=== PATIENT | female | born 1995 | race Caucasian/White ===

== ENCOUNTER 2020-07-06 08:21 | Outpatient (CLI) | payer BC, MEDICAID, SELFPAY ==
[2020-07-08 08:48] LABS: TB Skin Test Erythema 0 mm; TB Skin Test Induration 0 mm (0-10); TB Skin Test Interpretation Negative (Negative); TB Skin Test Site Left Arm
== END 2020-07-06 08:22 | disposition home or self-care (01) ==
LOC: CHSLAB 08:26
PROVIDERS: PCP Family Medicine; Visit Provider Family Medicine
DX: Z11.1 Encounter for screening for respiratory tuberculosis (principal)
CPT/HCPCS: 36415; 86580

== ENCOUNTER 2020-07-13 08:24 | Outpatient (CLI) | payer BC, MEDICAID, SELFPAY ==
[2020-07-16 10:23] LABS: TB Skin Test Erythema 0 mm; TB Skin Test Induration 0 mm (0-10); TB Skin Test Interpretation Negative (Negative); TB Skin Test Site Left Arm
== END 2020-07-13 08:25 | disposition home or self-care (01) ==
LOC: CHSLAB 08:26
PROVIDERS: PCP Family Medicine; Visit Provider Family Medicine
DX: Z11.1 Encounter for screening for respiratory tuberculosis (principal)
CPT/HCPCS: 36415; 86580

== ENCOUNTER 2021-06-20 07:46 | Outpatient (CLI) | payer OTHER, SELFPAY ==
[2021-06-23 09:15] LABS: TB Skin Test Erythema 0 mm; TB Skin Test Induration 0 mm (0-10); TB Skin Test Interpretation Negative (Negative); TB Skin Test Site Left Arm
--- NOTE | 2021-07-23 11:34 | WPDHOLTEREM ---
Holter/Event Monitor Holter/Event Monitor Date of procedure: 07/23/21 Holter/Event Procedure: Event Monitor Indications: Palpitations Conclusion: 1. 13 days event monitor between 06/20/21-07/19/21. There are 13 available transmissions for analysis. 2. Underlying rhythm is sinus rhythm. HR range 50-166 bpm; average HR 75 bpm. 3. There are occasional premature supraventricular complexes with total burden of <1%. No supraventricular tachycardia. 4. There are occasional premature ventricular complexes with total burden of <1%. No ventricular tachycardia. 5. No significant pauses greater than 2 seconds. 6. Patient reports 4 episodes of transmissions which demonstrate sinus rhythm, HR range 81-122 bpm with 1 PVC.
== END 2021-06-20 07:47 | disposition home or self-care (01) ==
LOC: CHSCARD 07:49
PROVIDERS: PCP Family Medicine; Visit Provider Family Medicine
DX: R00.2 Palpitations (principal); Z11.1 Encounter for screening for respiratory tuberculosis
CPT/HCPCS: 36415; 86580; 93270

== ENCOUNTER 2021-07-12 10:33 | Outpatient (CLI) | payer OTHER, SELFPAY ==
[2021-07-12 11:53] LABS: SARS-CoV-2 RNA PCR Negative (Negative)
== END 2021-07-12 10:34 | disposition home or self-care (01) ==
LOC: CHSLAB 10:36
PROVIDERS: PCP Family Medicine; Visit Provider Family Medicine
DX: R10.9 Unspecified abdominal pain (principal); Z20.822 Contact with and (suspected) exposure to COVID-19
CPT/HCPCS: C9803; U0003; U0005

== ENCOUNTER 2021-10-09 07:35 | Outpatient (CLI) | payer OTHER, SELFPAY ==
[2021-10-09 08:27] LABS: SARS-CoV-2 Ag Negative (Negative)
== END 2021-10-09 07:36 | disposition home or self-care (01) ==
LOC: CHSLAB 07:37
PROVIDERS: PCP Family Medicine; Visit Provider Family Medicine
DX: R50.9 Fever, unspecified (principal); Z20.822 Contact with and (suspected) exposure to COVID-19
CPT/HCPCS: 87426; C9803

== ENCOUNTER 2022-09-10 12:47 | Outpatient (CLI) | payer OTHER, SELFPAY ==
[2022-09-10 13:33] LABS: SARS-CoV-2 RNA PCR Negative (Negative)
== END 2022-09-10 12:48 | disposition home or self-care (01) ==
LOC: CHSLAB 12:50
PROVIDERS: PCP Family Medicine; Visit Provider Family Medicine
DX: J06.9 Acute upper respiratory infection, unspecified (principal); Z20.822 Contact with and (suspected) exposure to COVID-19
CPT/HCPCS: U0003; U0005